=== PATIENT | male | born 1970 | race Caucasian/White ===

== ENCOUNTER 2016-09-03 13:43 | Observation (INO) | payer MEDICAID ==
[~2016-09-03] VITALS: Ht 188 cm; Wt 145.0 kg
[~2016-09-03 13:43] MED LIST: BUPR-173 PO; CLON0.1T PO; LISI2.5T PO; SERT25TA PO
[2016-09-03 13:57] LABS: DAU SCREEN DISCLAIMER
[2016-09-03] MEDS ORDERED: LORazepam 1MG TABLET ONE (13:58)
[2016-09-03] MEDS ORDERED: LORazepam 1MG TABLET PO ONE (14:00)
[2016-09-03 14:04] LABS: HEMOGLOBIN 14.8 g/dL (13.7-18.0)
[2016-09-03] MEDS ORDERED: PALI6TAB5 PO (14:09)
[2016-09-03] MEDS ORDERED: CLON0.2T PO (14:09)
[2016-09-03] MEDS ORDERED: QUET400T PO (14:09)
[2016-09-03] MEDS ORDERED: LAMO100T5 PO (14:09)
[2016-09-03] MEDS ORDERED: LOSA100T6 PO (14:09)
[2016-09-03] MEDS ORDERED: SERT100T5 PO (14:09)
[2016-09-03] MEDS ORDERED: PRAZ2CAP2 PO (14:09)
[2016-09-03 14:15] LABS: BLOOD UREA NITROGEN 15 mg/dL (7-18)
[2016-09-03 14:16] LABS: ASPARTATE AMINO TRANSFERASE 56 U/L (15-37)
[2016-09-03 14:28] LABS: ACETAMINOPHEN < 2 mcg/mL (10-30)
[2016-09-03] MEDS ORDERED: HALOPERIDOL 5 MG TABLET PO PRN (15:30)
[2016-09-03] MEDS ORDERED: TRAZODONE 50MG TABLET PO PRN (15:30)
[2016-09-03] MEDS ORDERED: ACETAMINOPHEN 325 MG TABLET PO PRN (15:30)
[2016-09-03] MEDS ORDERED: ENOXAPARIN 40 MG/0.4 ML SQ SCH (15:30)
[2016-09-03] MEDS ORDERED: ONDANSETRON ODT 4 MG PO PRN (15:30)
[2016-09-03] MEDS ORDERED: HALOPERIDOL 5 MG/ML IM PRN (15:30)
[2016-09-03] MEDS ORDERED: NICOTINE 14MG/24 HR PATCH.TD24 TD SCH (15:30)
[2016-09-03 17:04] VITALS: BP 158/91
[2016-09-03] MEDS ORDERED: TEMPLATE NON-FORMULARY MED. (Quetiapine Fumarate** 400 MG) PO SCH (21:00)
[2016-09-03] MEDS ORDERED: PRAZOSIN 2 MG CAPSULE PO SCH (21:00)
[2016-09-03] MEDS ORDERED: LAMOTRIGINE 100 MG TABLET PO SCH (21:00)
[2016-09-04] MEDS ORDERED: SERTRALINE 100MG TABLET PO SCH (09:00)
[2016-09-04] MEDS ORDERED: PALIPERIDONE 6 MG TAB.ER.24 PO SCH (09:00)
[2016-09-04] MEDS ORDERED: TEMPLATE NON-FORMULARY MED. (Losartan Potassium** 100 MG) PO SCH (09:00)
== END 2016-09-03 22:03 | disposition home or self-care (01) ==
LOC: ED 14:48 → EDIP 14:50 → UNDOADMOB 14:50 → SUATTDRO 15:08 → 3NE 15:18 → ED 15:18 → 3NE 15:18 → ED 15:22
PROVIDERS: ADMIT Internal Medicine; ATTEND Internal Medicine
DX: F23 Brief psychotic disorder (principal); R44.0 Auditory hallucinations; I10 Essential (primary) hypertension; R94.5 Abnormal results of liver function studies; F31.9 Bipolar disorder, unspecified; F43.10 Post-traumatic stress disorder, unspecified
CPT/HCPCS: 36415; 80053; 80307; 80329; 85025; 93005; 99285; G0378; G0480